=== PATIENT | male | born 1960 | race Caucasian/White ===

== ENCOUNTER 2016-10-08 04:57 | Emergency (ER) | payer OTHER ==
[2016-10-08 05:03] VITALS: O2SAT 95
[2016-10-08] MEDS ORDERED: ASPIRIN 81 MG CHEWABLE TAB PO ONE (05:26)
--- NOTE | 2016-10-08 05:36 | EDPHY ---
H & P Stated Complaint: c/o mid cp/sob since approx 0200 Time Seen by Provider: 10/08/16 05:14 HPI/ROS: HPI The patient presents with chest pain which began at approximately 2:00am-2:30am this morning. He woke in the middle of the night to turn off the sprinkler outside. When he lied back down in bed he noticed that he had mild mid sternal chest pain which he describes as a tight and sharp sensation. This is associated with shortness of breath. This lasted for several hours, thus he decided come to the emergency room. The pain subsided briefly, though has now returned. He does not have any associated nausea, vomiting, dizziness, diaphoresis. He has no prior history of similar pain. He does have GERD and takes a PPI for this. This pain does not feel like his typical GERD pain. REVIEW OF SYSTEMS Constitutional: No fever, no chills. Eyes: No discharge. ENT: No sore throat. Cardiovascular: See HPI Respiratory: No cough, no shortness of breath. Gastrointestinal: No abdominal pain, no vomiting. Genitourinary: No hematuria. Musculoskeletal: No back pain. Skin: No rashes. Neurological: No headache. PMHx: Elevated cholesterol, GERD, has never had any cardiac testing Soc Hx: Nonsmoker FHx: Adopted PHYSICAL General Appearance: Alert, no distress Eyes: Pupils equal and round no pallor or injection ENT, Mouth: Mucous membranes moist Respiratory: There are no retractions, lungs are clear to auscultation Cardiovascular: Regular rate and rhythm Gastrointestinal: Abdomen is soft and non-tender, no masses, bowel sounds normal Neurological: A&O, moves all extremities Skin: Warm and dry, no rashes Musculoskeletal: Neck is supple non tender Extremities: symmetrical, full range of motion Psychiatric: Patient is oriented X 3, there is no agitation Source: Patient - Medical/Surgical History Hx Asthma: No Hx Chronic Respiratory Disease: No Hx Diabetes: No Hx Cardiac Disease: Yes Hx Renal Disease: No Hx Cirrhosis: No Hx Alcoholism: No Hx HIV/AIDS: No Hx Splenectomy or Spleen Trauma: No Other PMH: hyperlipidemia, gerd, L knee surg - Social History Smoking Status: Former smoker Constitutional: Initial Vital Signs Heart Rate 75 10/08/16 05:00 Respiratory Rate 18 10/08/16 05:00 Blood Pressure 146/83 H 10/08/16 05:00 O2 Sat (%) 95 10/08/16 05:00 O2 Delivery Mode Room Air Allergies/Adverse Reactions: oyster extract Allergy (Verified 10/08/16 05:04) Penicillins Allergy (Verified 10/08/16 05:04) Home Medications: Medication Instructions Recorded Lipitor 10/08/16 Prilosec 20 mg 10/08/16 Medical Decision Making - Diagnostics EKG Interpretation: EKG: Complete interpretation has been separately recorded in the [facility] archive. Summary impression: Normal sinus rhythm, no ischemic changes Imaging: Chest x-ray two views shows peribronchial thickening, no infiltrate, interpreted by me, radiology interpretation is pending. ED Course/Re-evaluation: The patient was observed in the emergency room. He had no events on telemetry. His chest pain improved immediately and he felt well. His troponin and EKG were unremarkable. Chest x-ray was also normal. His HEART score was calculated at 2. He asks to be discharged home and I feel this is reasonable. I have given him information for Cardiology to call for follow-up stress testing. He was advised to return to the emergency room if his chest pain is worse in any way. I feel he may have had symptomatic GERD. Differential Diagnosis: This is a 56-year-old male with hyperlipidemia who presents from home with chest pain which occurred at rest tonight which has been constant, described as a tightness and associated with shortness of breath. Differential diagnosis includes ACS, GERD, musculoskeletal pain, anxiety. - Data Points Laboratory Results: Laboratory Results 10/08/16 05:22 10/08/16 05:22 10/08/16 10/08/16 05:22 05:22 WBC 6.93 10^3/uL 10^3/uL (3.80-9.50) RBC 4.74 10^6/uL 10^6/uL (4.40-6.38) Hgb 14.0 g/dL g/dL (13.7-17.5) Hct 41.3 % % (40.0-51.0) MCV 87.1 fL fL (81.5-99.8) MCH 29.5 pg pg (27.9-34.1) MCHC 33.9 g/dL g/dL (32.4-36.7) RDW 13.1 % % (11.5-15.2) Plt Count 231 10^3/uL 10^3/uL (150-400) MPV 10.4 fL fL (8.7-11.7) Neut % (Auto) 59.5 % % (39.3-74.2) Lymph % (Auto) 29.6 % % (15.0-45.0) [place] % (Auto) 8.7 % % (4.5-13.0) Eos % (Auto) 1.0 % % (0.6-7.6) Baso % (Auto) 0.6 % % (0.3-1.7) Nucleat RBC Rel Count 0.0 % % (0.0-0.2) Absolute Neuts (auto) 4.13 10^3/uL 10^3/uL (1.70-6.50) Absolute Lymphs (auto) 2.05 10^3/uL 10^3/uL (1.00-3.00) Absolute Monos (auto) 0.60 10^3/uL 10^3/uL (0.30-0.80) Absolute Eos (auto) 0.07 10^3/uL 10^3/uL (0.03-0.40) Absolute Basos (auto) 0.04 10^3/uL 10^3/uL (0.02-0.10) Absolute Nucleated RBC 0.00 10^3/uL 10^3/uL (0-0.01) Immature Gran % 0.6 % % (0.0-1.1) Immature Gran # 0.04 10^3/uL 10^3/uL (0.00-0.10) Sodium 144 mEq/L mEq/L (134-144) Potassium 3.8 mEq/L mEq/L (3.5-5.2) Chloride 110 mEq/L mEq/L (97-110) Carbon Dioxide 24 mEq/l mEq/l (22-31) Anion Gap 10 mEq/L mEq/L (8-16) BUN 16 mg/dL mg/dL (7-23) Creatinine 0.8 mg/dL mg/dL (0.7-1.3) Estimated GFR > 60 Glucose 118 mg/dL H mg/dL (70-100) Calcium 8.5 mg/dL mg/dL (8.5-10.4) Total Bilirubin 0.7 mg/dL mg/dL (0.1-1.4) Conjugated Bilirubin 0.4 mg/dL mg/dL (0.0-0.5) Unconjugated Bilirubin 0.3 mg/dL mg/dL (0.0-1.1) AST 77 IU/L H IU/L (17-59) ALT 65 IU/L IU/L (21-72) Alkaline Phosphatase 91 IU/L IU/L (38-126) Troponin I < 0.012 ng/mL ng/mL (0-0.034) Total Protein 6.6 g/dL g/dL (6.3-8.2) Albumin 3.8 g/dL g/dL (3.5-5.0) Lipase 126.0 IU/L IU/L (23-300) Medications Given: Discontinued Medications Aspirin (Aspirin) 324 mg PO EDNOW ONE Stop: 10/08/16 05:27 Last Admin: 10/08/16 05:34 Dose: 324 mg Departure - Departure Disposition: Home, Routine, Self-Care Clinical Impression: Chest pain Qualifiers: Chest pain type: unspecified Qualified Code(s): R07.9 - Chest pain, unspecified Condition: Good Instructions: Chest Pain (ED) Additional Instructions: If your chest pain returns or if your feeling worse in any way you should return to the emergency room. Otherwise I have given you the information for the fluid dynamicist Dr. Hawk. You can call her office to arrange for cardiac stressed testing. Referrals: Teo Edmonds MD [Primary Care Provider] - As per Instructions Ludmila Hawk MD [Medical Doctor] - As per Instructions
[2016-10-08 05:37] LABS: % IMMATURE GRANULYOCYTES 0.6 % (0.0-1.1); ABSOLUTE IMMATURE GRANULOCYTES 0.04 10^3/uL (0.00-0.10); ADD DIFF? NO; ADD MORPH? NO; ADD SCAN? NO; ATYPICAL LYMPHOCYTE FLAG 10 (0-99); FRAGMENT RBC FLAG 0 (0-99); HEMATOCRIT 41.3 % (40.0-51.0); LEFT SHIFT FLG 0 (0-99); LIPEMIA HEMOLYSIS FLAG 90 (0-99); MEAN CELL HEMOGLOBIN 29.5 pg (27.9-34.1); MEAN CELL HEMOGLOBIN CONCENTR. 33.9 g/dL (32.4-36.7); MEAN CELL VOLUME 87.1 fL (81.5-99.8); MEAN PLATELET VOLUME 10.4 fL (8.7-11.7); PLATELET CLUMPS FLAG 10 (0-99); PLATELET COUNT 231 10^3/uL (150-400); RED BLOOD CELL COUNT 4.74 10^6/uL (4.40-6.38); RED CELL DISTRIBUTION WIDTH 13.1 % (11.5-15.2)
[2016-10-08 05:49] LABS: ALANINE AMINOTRANSFERASE 65 IU/L (21-72); ALBUMIN 3.8 g/dL (3.5-5.0); ALKALINE PHOSPHATASE 91 IU/L (38-126); ANION GAP 10 mEq/L (8-16); ASPARTATE AMINOTRANSFERASE 77 IU/L (17-59); BILIRUBIN,TOTAL 0.7 mg/dL (0.1-1.4); BILIRUBIN-CONJUGATED 0.4 mg/dL (0.0-0.5); BILIRUBIN-UNCONJUGATED 0.3 mg/dL (0.0-1.1); CALCIUM 8.5 mg/dL (8.5-10.4); CARBON DIOXIDE 24 mEq/l (22-31); CHLORIDE 110 mEq/L (97-110); CREATININE 0.8 mg/dL (0.7-1.3); GLOMERULAR FILTRATION RATE > 60; GLUCOSE 118 mg/dL (70-100); POTASSIUM 3.8 mEq/L (3.5-5.2); SODIUM 144 mEq/L (134-144); TOTAL PROTEIN 6.6 g/dL (6.3-8.2)
[2016-10-08 06:00] LABS: TROPONIN I < 0.012 ng/mL (0-0.034)
--- NOTE | 2016-10-08 06:06 | CPEKG ---
Heart Rate: 58 RR Interval: 1034 P-R Interval: 208 QRSD Interval: 102 QT Interval: 412 QTC Interval: 405 P Linden: 47 QRS Linden: 9 T Wave Linden: 23 EKG Severity - NORMAL ECG - EKG Impression: SINUS RHYTHM Electronically Signed By: Mary Joseph 08-Oct-2016 07:30:16
[2016-10-08 06:40] VITALS: BP 128/68; PULSE 63; RESP 16
== END 2016-10-08 06:39 | disposition home or self-care (01) ==
DX: R07.2 Precordial pain (principal); Z87.891 Personal history of nicotine dependence